=== PATIENT | female | born 1955 | race Caucasian/White ===

== ENCOUNTER 2019-02-13 07:31 | Day surgery (SDC) | payer BC ==
[~2019-02-13 07:31] MED LIST: Lactated Ringers 1,000 ML IV SCH
[2019-02-13] MEDS ORDERED: Midazolam 1 MG/ML 2 ML SDV ONE (07:58)
[2019-02-13] MEDS ORDERED: Propofol 200 MG/20 ML SDV ONE (07:58)
[2019-02-13] MEDS ORDERED: fentaNYL 100 MCG/2 ML SDV ONE (07:58)
--- NOTE | 2019-02-13 10:37 | OR ---
PREOPERATIVE DIAGNOSES: 1. Screening colonoscopy. 2. Family history of polyps-mother. POSTOPERATIVE DIAGNOSES: 1. Sigmoid diverticulosis. 2. Colonic polyps x3. PROCEDURE PROPOSED: Total flexible colonoscopy. PROCEDURE DONE: Total flexible colonoscopy with cold biopsy forceps polypectomy x2, cold snare polypectomy x1. INDICATION: This is a 63-year-old female who comes in for a 10-year screening colonoscopy. Her last examination was normal. She does have a family history of mother with polyps. She denies any symptomatology. TECHNIQUE: The patient was brought to the endoscopy suite, placed in left lateral decubitus position. She was sedated per [employer] with propofol. The flexible video colonoscope was then passed transanally, and under visualization, advanced to the cecum. Examination revealed couple of polyps in the hepatic flexure area at about 130 cm from the anal verge. One was removed by cold snare technique, the other by cold biopsy forceps technique. They were both submitted for pathologic examination. The remainder of the transverse colon was unremarkable. In the distal descending colon at about 40 cm, there was another polyp removed by cold biopsy forceps technique and submitted for pathologic examination. The sigmoid revealed some diverticulosis, and the rectum was normal. The scope was then withdrawn. She tolerated the procedure well. FINAL IMPRESSION: 1. Colonic polyps x3 removed. 2. Sigmoid diverticulosis. PLAN: She will be sent a letter with pathology report, and I felt with her family history of polyps and now her personal history of polyps, she should have colonoscopies every 5 years hereafter. SCM: 02/13/2019 10:12:10 MODL: 02/13/2019 10:27:49 /[id number]
[2019-02-13 11:09] VITALS: BP 135/64; PULSE 50
== END 2019-02-13 11:36 | disposition home or self-care (01) ==
LOC: VM.SDS 07:31
PROVIDERS: ATTEND Surgery
DX: Z12.11 Encounter for screening for malignant neoplasm of colon (principal); D12.4 Benign neoplasm of descending colon; D12.3 Benign neoplasm of transverse colon; K57.30 Diverticulosis of large intestine without perforation or abscess without bleeding; I10 Essential (primary) hypertension; I48.91 Unspecified atrial fibrillation; I34.0 Nonrheumatic mitral (valve) insufficiency; E78.5 Hyperlipidemia, unspecified; E03.9 Hypothyroidism, unspecified; E66.9 Obesity, unspecified; C73 Malignant neoplasm of thyroid gland; G47.33 Obstructive sleep apnea (adult) (pediatric); R73.03 Prediabetes; M17.11 Unilateral primary osteoarthritis, right knee; Z88.8 Allergy status to other drugs, medicaments and biological substances; Z68.39 Body mass index [BMI] 39.0-39.9, adult; Z99.89 Dependence on other enabling machines and devices; Z83.71 Family history of colonic polyps; Z79.82 Long term (current) use of aspirin; Z79.899 Other long term (current) drug therapy
CPT/HCPCS: 45380; 45385; J2250; J2704; J3010; J7120

== ENCOUNTER 2019-09-27 03:25 | Observation (INO) | payer BC ==
[2019-09-27] MEDS ORDERED: Diltiazem 50 MG/10 ML SDV IVPUSH ONE ×2 (04:03→19:28)
--- NOTE | 2019-09-27 04:17 | EDM.PDOC ---
ED HPI GENERAL MEDICAL PROBLEM - General Chief Complaint: Cardiovascular Problem Stated Complaint: Uncontrolled atrial fib, SOB Time Seen by Provider: 09/27/19 03:50 Source of Information: Reports: Patient History Limitations: Reports: No Limitations - History of Present Illness INITIAL COMMENTS - FREE TEXT/NARRATIVE: Patient presents per EMS with complaints of a fluttering sensation in her chest. Had retired to bed around 2300, awoke at 0130 with a fluttering sensation in her chest. Got diaphoretic. Denies having much chest discomfort with this. Had a history of one episode of atrial fib about 5 years ago and questioned if having same now. Has been feeling good. No fevers. Admits to mild shortness of breath with this. No cough. No nausea/vomiting/abdominal pain. No swelling in her legs. Has been taking metoprolol 25 mg twice a day for 5 years and has been compliant with that. Currently takes thyroid medicine , has not missed any doses with that either. Has not seen cardiology for this, relates was discussion of ablation but never had to have completed. Onset: Today, Sudden Duration: Hour(s):, Constant Location: Reports: Chest Severity: Mild Associated Symptoms: Reports: Diaphoresis, Shortness of Breath, Weakness. Denies: Confusion, Chest Pain, Cough, Fever/Chills, Loss of Appetite, Nausea/ Vomiting - Related Data Allergies Allergy/AdvReac Type Severity Reaction Status Date / Time hydrochlorothiazide Allergy Rash Verified 09/27/19 03:55 Home Meds: Home Meds Cholecalciferol (Vitamin D3) [Vitamin D3] 1,000 units PO DAILY 10/06/14 [History ] Multivitamin [Multi-Vitamin Daily] 1 tab PO DAILY 10/06/14 [History] Metoprolol Tartrate [Lopressor] 25 mg PO BID #60 tablet 10/07/14 [Rx] Aspirin [Children's Aspirin] 162 mg PO BID 02/05/19 [History] Calcium Carbonate/Vitamin D3 [Caltrate 600 Plus D3 Tablet] 1 tab PO TID [History] Levothyroxine Sodium [Synthroid] 200 mcg PO DAILY 02/05/19 [History] Past Medical History HEENT History: Reports: Other (See Below) Other HEENT History: vocal cord paralysis Cardiovascular History: Reports: Afib, High Cholesterol, Hypertension, Other ( See Below) Other Cardiovascular History: mild mitral valve regurgitaion Respiratory History: Reports: Sleep Apnea Genitourinary History: Reports: Other (See Below) Other Genitourinary History: stress incontinence Musculoskeletal History: Reports: Osteoarthritis Endocrine/Metabolic History: Reports: Hypothyroidism, Obesity/BMI 30+ Oncologic (Cancer) History: Reports: Thyroid - Past Surgical History HEENT Surgical History: Reports: Other (See Below) Other HEENT Surgeries/Procedures: panendoscopy; radical neck dissection GI Surgical History: Reports: Colonoscopy Endocrine Surgical History: Reports: Thyroidectomy Neurological Surgical History: Reports: Laminectomy, Lumbar Spine Musculoskeletal Surgical History: Reports: Knee Replacement Social & Family History - Tobacco Use Smoking Status *Q: Unknown Ever Smoked ED ROS GENERAL - Review of Systems Review Of Systems: See Below Constitutional: Denies: Fever, Chills, Malaise, Weakness, Fatigue, Decreased Appetite HEENT: Denies: Ear Pain, Sinus Problem, Throat Pain, Vertigo Respiratory: Reports: Shortness of Breath. Denies: Cough Cardiovascular: Denies: Chest Pain, Edema, Lightheadedness Endocrine: Denies: Fatigue GI/Abdominal: Denies: Abdominal Pain, Nausea, Vomiting Musculoskeletal: Reports: No Symptoms Skin: Reports: Diaphoresis Neurological: Reports: No Symptoms ED EXAM, GENERAL - Physical Exam Exam: See Below Exam Limited By: No Limitations General Appearance: Alert, WD/WN, No Apparent Distress Ears: Normal External Exam, Normal TMs Nose: Normal Inspection, Normal Mucosa, No Blood Throat/Mouth: Normal Inspection, Normal Oropharynx Head: Normocephalic Neck: Normal Inspection, Supple, Non-Tender Respiratory/Chest: No Respiratory Distress, Lungs Clear, Normal Breath Sounds Cardiovascular: Tachycardia, Irregularly Irregular GI/Abdominal: Normal Bowel Sounds, Soft, Non-Tender Extremities: Normal Inspection, No Pedal Edema Neurological: Alert, Oriented Skin Exam: Warm, Dry Course - Vital Signs Last Recorded V/S: Last Vital Signs Temp 98 F 09/27/19 03:28 Pulse 120 H 09/27/19 03:28 Resp 16 09/27/19 03:28 BP 157/95 H 09/27/19 03:28 Pulse Ox 95 09/27/19 03:28 - Orders/Labs/Meds Orders: Active Orders 24 hr Category Date Time Status Patient Status Manage Transfer [TRANSFER] Routine ADT 09/27/19 04:47 Active Chest 2V [CR] Stat Exams 09/27/19 03:58 Taken Resuscitation Status Routine Resus Stat 09/27/19 04:47 Ordered Labs: Laboratory Tests 09/27/19 09/27/19 09/27/19 Range/Units 04:01 04:01 04:01 WBC 9.6 (4.0-10.0) x10^3/uL RBC 4.81 (4.00-5.50) x10^6/uL Hgb 13.9 (12.0-16.0) g/dL Hct 41.0 (33.0-47.0) % MCV 85.2 (78.0-93.0) fL MCH 28.9 (26.0-32.0) pg MCHC 33.9 (32.0-36.0) g/dL RDW Coeff of Kirt 13.2 (10.0-15.0) % Plt Count 247 (130-400) x10^3/uL Neut % (Auto) 68.3 (50.0-80.0) % Lymph % (Auto) 22.2 L (25.0-50.0) % Citrus % (Auto) 7.9 (2.0-11.0) % Eos % (Auto) 1.3 (0.0-4.0) % Baso % (Auto) 0.3 (0.2-1.2) % D-Dimer, Quantitative 0.63 H (<=0.58) mg/LFEU Sodium 146 H (136-145) mmol/L Potassium 4.5 (3.5-5.1) mmol/L Chloride 107 (98-107) mmol/L Carbon Dioxide 28 (21-32) mmol/L Anion Gap 15.5 (10-20) mmol/L BUN 19 H (7-18) mg/dL Creatinine 0.9 (0.55-1.02) mg/dL Est Cr Clr Drug Dosing 59.89 mL/min Estimated GFR (MDRD) > 60 Glucose 121 H (74-106) mg/dL Calcium 9.0 (8.5-10.1) mg/dL Corrected Calcium 9.32 (8.5-10.1) mg/dL Total Bilirubin 0.3 (0.2-1.0) mg/dL AST 19 (15-37) U/L ALT 27 (14-59) U/L Alkaline Phosphatase 101 (46-116) U/L Lactate Dehydrogenase 183 (81-234) U/L Creatine Kinase 207 H* (26-192) U/L Troponin I < 0.017 (<=0.056) ng/mL Total Protein 7.5 (6.4-8.2) g/dL Albumin 3.6 (3.4-5.0) g/dL Globulin 3.9 Albumin/Globulin Ratio 0.92 TSH, Ultra Sensitive 0.016 L (0.358-3.74) uIU/mL Meds: Medications Discontinued Medications Generic Name Dose Route Start Last Admin Trade Name Freq PRN Reason Stop Dose Admin Diltiazem HCl 10 mg 09/27/19 04:03 Cardizem IVPUSH 09/27/19 04:04 ONETIME ONE - Re-Assessments/Exams Free Text/Narrative Re-Assessment/Exam: 09/27/19 04:55 Patient stable. No chest pain. Rate 100-109. Will admit to observation. Monitor cardiac rhythm and rate, consider starting Cardizem oral and Eliquis. Contact her physician in am. Patient aware and agrees with plan. Departure - Departure Time of Disposition: 04:45 Disposition: Refer to Observation Condition: Good Clinical Impression: Atrial fibrillation with RVR Forms: ED Department Discharge Sepsis Event Note - Evaluation Sepsis Screening Result: No Definite Risk - Focused Exam Vital Signs: Vital Signs Temp Pulse Resp BP Pulse Ox 09/27/19 03:28 98 F 120 H 16 157/95 H 95 Date Exam was Performed: 09/27/19 Time Exam was Performed: 04:55 - Problem List & Annotations (1) Atrial fibrillation with RVR SNOMED Code(s): 350094083256138 Code(s): I48.91 - UNSPECIFIED ATRIAL FIBRILLATION Status: Acute Priority : High Current Visit: Yes - Problem List Review Problem List Initiated/Reviewed/Updated: Yes - My Orders Last 24 Hours: My Active Orders 09/27/19 03:58 Chest 2V [CR] Stat 09/27/19 04:47 Patient Status Manage Transfer [TRANSFER] Routine Resuscitation Status Routine - Assessment/Plan Admission H&P: Please use this note as an admission H&P Last 24 Hours: My Active Orders 09/27/19 03:58 Chest 2V [CR] Stat 09/27/19 04:47 Patient Status Manage Transfer [TRANSFER] Routine Resuscitation Status Routine Assessment:: Atrial Fib with RVR Plan: Admit to observation. Will repeat labs in 4 hours. Consider Cardizem oral and Eliquis, will follow and discuss with PCP.
[2019-09-27] MEDS ORDERED: Sodium Chloride 0.9% 500 ML IV ONE (04:20)
[2019-09-27 04:38] LABS: CHLORIDE,CL 107 mmol/L (98-107); SODIUM,NA 146 mmol/L (136-145)
[2019-09-27 04:40] LABS: ANION GAP 15.5 mmol/L (10-20)
[2019-09-27] MEDS ORDERED: Acetaminophen 325 MG Tab PO PRN (05:01)
[2019-09-27] MEDS ORDERED: Ondansetron 4 MG Tab.DIS PO PRN (05:01)
[2019-09-27] MEDS ORDERED: Enoxaparin 40 MG/0.4 ML Syringe SUBCUT SCH (08:00)
[2019-09-27] MEDS ORDERED: Metoprolol Tartrate 25 MG Tab PO SCH (08:00)
[2019-09-27] MEDS: Levothyroxine 100 MCG Tab PO SCH (08:26)
[2019-09-27] MEDS: Calcium Carbonate/Vitamin D3 1250 MG-200 Unit Tab PO SCH ×3 (08:26→21:31)
[2019-09-27] MEDS: Aspirin 81 MG Tab.Chew PO SCH ×2 (08:27→22:17)
[2019-09-27] MEDS: Cholecalciferol (Vitamin D3) 25 MCG Tab PO SCH (08:27)
[2019-09-27] MEDS ORDERED: Metoprolol Tartrate 25 MG Tab PO ONE (10:35)
--- NOTE | 2019-09-27 10:49 | CR ---
[id number] RAD/RAD Chest PA And Lateral EXAM: RAD Chest PA And Lateral INDICATION: PALPITATIONS. COMPARISON: None. DISCUSSION: Multiple surgical clips within the left neck. Cardiomediastinal silhouette is normal in size and contour. No infiltrate, effusion, pneumothorax, or edema. IMPRESSION: No acute cardiopulmonary abnormality. Fortino Lester DO 09/27/19 1048 Thank you for allowing us to participate in the care of your patient.
--- NOTE | 2019-09-27 17:26 | PCM.PN ---
- General Info Date of Service: 09/27/19 Admission Dx/Problem (Free Text): Atrial Fib with RVR Functional Status: Reports: Pain Controlled, Tolerating Diet, Ambulating - Review of Systems General: Denies: Fever, Weakness, Fatigue, Malaise HEENT: Denies: Headaches Pulmonary: Denies: Shortness of Breath, Cough Cardiovascular: Reports: Palpitations. Denies: Chest Pain, Edema, Lightheadedness Gastrointestinal: Denies: Abdominal Pain, Nausea, Vomiting Genitourinary: Reports: No Symptoms Musculoskeletal: Reports: No Symptoms Skin: Reports: No Symptoms Neurological: Reports: No Symptoms - Patient Data Vitals - Most Recent: Last Vital Signs Temp 98.1 F 09/27/19 14:00 Pulse 102 H 09/27/19 14:00 Resp 16 09/27/19 14:00 BP 117/74 09/27/19 14:00 Pulse Ox 97 09/27/19 14:00 Weight - Most Recent: 245 lb I&O - Last 24 Hours: Intake & Output 09/27/19 09/27/19 09/27/19 06:59 14:59 22:59 Intake Total 100 586 Balance 100 586 Lab Results Last 24 Hours: Laboratory Results - last 24 hr 09/27/19 09/27/19 09/27/19 Range/Units 04:01 04:01 04:01 WBC 9.6 (4.0-10.0) x10^3/uL RBC 4.81 (4.00-5.50) x10^6/uL Hgb 13.9 (12.0-16.0) g/dL Hct 41.0 (33.0-47.0) % MCV 85.2 (78.0-93.0) fL MCH 28.9 (26.0-32.0) pg MCHC 33.9 (32.0-36.0) g/dL RDW Coeff of Kirt 13.2 (10.0-15.0) % Plt Count 247 (130-400) x10^3/uL Neut % (Auto) 68.3 (50.0-80.0) % Lymph % (Auto) 22.2 L (25.0-50.0) % [place] % (Auto) 7.9 (2.0-11.0) % Eos % (Auto) 1.3 (0.0-4.0) % Baso % (Auto) 0.3 (0.2-1.2) % D-Dimer, Quantitative 0.63 H (<=0.58) mg/LFEU Sodium 146 H (136-145) mmol/L Potassium 4.5 (3.5-5.1) mmol/L Chloride 107 (98-107) mmol/L Carbon Dioxide 28 (21-32) mmol/L Anion Gap 15.5 (10-20) mmol/L BUN 19 H (7-18) mg/dL Creatinine 0.9 (0.55-1.02) mg/dL Est Cr Clr Drug Dosing 59.89 mL/min Estimated GFR (MDRD) > 60 Glucose 121 H (74-106) mg/dL Calcium 9.0 (8.5-10.1) mg/dL Corrected Calcium 9.32 (8.5-10.1) mg/dL Total Bilirubin 0.3 (0.2-1.0) mg/dL AST 19 (15-37) U/L ALT 27 (14-59) U/L Alkaline Phosphatase 101 (46-116) U/L Lactate Dehydrogenase 183 (81-234) U/L Creatine Kinase 207 H* (26-192) U/L Troponin I < 0.017 (<=0.056) ng/mL Total Protein 7.5 (6.4-8.2) g/dL Albumin 3.6 (3.4-5.0) g/dL Globulin 3.9 Albumin/Globulin Ratio 0.92 TSH, Ultra Sensitive 0.016 L (0.358-3.74) uIU/mL 09/27/19 Range/Units 08:59 WBC (4.0-10.0) x10^3/uL RBC (4.00-5.50) x10^6/uL Hgb (12.0-16.0) g/dL Hct (33.0-47.0) % MCV (78.0-93.0) fL MCH (26.0-32.0) pg MCHC (32.0-36.0) g/dL RDW Coeff of Kirt (10.0-15.0) % Plt Count (130-400) x10^3/uL Neut % (Auto) (50.0-80.0) % Lymph % (Auto) (25.0-50.0) % [place] % (Auto) (2.0-11.0) % Eos % (Auto) (0.0-4.0) % Baso % (Auto) (0.2-1.2) % D-Dimer, Quantitative (<=0.58) mg/LFEU Sodium (136-145) mmol/L Potassium (3.5-5.1) mmol/L Chloride (98-107) mmol/L Carbon Dioxide (21-32) mmol/L Anion Gap (10-20) mmol/L BUN (7-18) mg/dL Creatinine (0.55-1.02) mg/dL Est Cr Clr Drug Dosing mL/min Estimated GFR (MDRD) Glucose (74-106) mg/dL Calcium (8.5-10.1) mg/dL Corrected Calcium (8.5-10.1) mg/dL Total Bilirubin (0.2-1.0) mg/dL AST (15-37) U/L ALT (14-59) U/L Alkaline Phosphatase (46-116) U/L Lactate Dehydrogenase (81-234) U/L Creatine Kinase 189 (26-192) U/L Troponin I < 0.017 (<=0.056) ng/mL Total Protein (6.4-8.2) g/dL Albumin (3.4-5.0) g/dL Globulin Albumin/Globulin Ratio TSH, Ultra Sensitive (0.358-3.74) uIU/mL Med Orders - Current: Current Medications Acetaminophen (Tylenol) 650 mg PO Q4H PRN PRN Reason: Pain (Mild 1-3)/fever Aspirin (Aspirin) 162 mg PO BID [facility] Last Admin: 09/27/19 08:27 Dose: 162 mg Calcium Carbonate (Calcium Carbonate/Vitamin D 1250 Mg-200 Unit) 1 tab PO TID [facility] Last Admin: 09/27/19 11:33 Dose: 1 tab Cholecalciferol (Vitamin D3) 25 mcg PO DAILY [facility] Last Admin: 09/27/19 08:27 Dose: 25 mcg Enoxaparin Sodium (Lovenox) 40 mg SUBCUT DAILY [facility] Last Admin: 09/27/19 08:27 Dose: 40 mg Sodium Chloride (Normal Saline) 500 mls @ 30 mls/hr IV ONETIME ONE Stop: 09/27/19 20:59 Last Admin: 09/27/19 04:25 Dose: 30 mls/hr Levothyroxine Sodium (Synthroid) 200 mcg PO DAILY [facility] Last Admin: 09/27/19 08:26 Dose: 200 mcg Ondansetron HCl (Zofran Odt) 4 mg PO Q4H PRN PRN Reason: nausea, able to take PO Discontinued Medications Diltiazem HCl (Cardizem) 10 mg IVPUSH ONETIME ONE Stop: 09/27/19 04:04 Last Admin: 09/27/19 04:28 Dose: 10 mg Metoprolol Tartrate (Lopressor) 25 mg PO BID [facility] Last Admin: 09/27/19 08:27 Dose: 25 mg Metoprolol Tartrate (Lopressor) 25 mg PO NOW ONE Stop: 09/27/19 10:36 Last Admin: 09/27/19 11:33 Dose: 25 mg - Exam General: Alert, Oriented HEENT: Mucous Membr. Moist/Electra Neck: Supple Lungs: Clear to Auscultation, Normal Respiratory Effort Cardiovascular: Irregular Rhythm GI/Abdominal Exam: Normal Bowel Sounds, Soft, Non-Tender Extremities: Normal Inspection, No Pedal Edema Skin: Warm, Dry Neurological: No New Focal Deficit Sepsis Event Note - Evaluation Sepsis Screening Result: No Definite Risk - Focused Exam Vital Signs: Vital Signs Temp Temp Pulse Pulse Resp BP BP 09/27/19 14:00 98.1 F 102 H 16 117/74 09/27/19 11:33 110 H 123/75 09/27/19 09:52 97.8 F 100 24 H 123/75 09/27/19 08:27 120 H 126/73 09/27/19 06:42 09/27/19 06:00 97.6 F 18 126/73 Pulse Ox Pulse Ox 09/27/19 14:00 97 09/27/19 11:33 09/27/19 09:52 96 09/27/19 08:27 09/27/19 06:42 95 09/27/19 06:00 96 Date Exam was Performed: 09/27/19 Time Exam was Performed: 17:20 - Problem List & Annotations (1) Atrial fibrillation with RVR SNOMED Code(s): 403849407642336 Code(s): I48.91 - UNSPECIFIED ATRIAL FIBRILLATION Status: Acute Priority : High Current Visit: Yes - Problem List Review Problem List Initiated/Reviewed/Updated: Yes - My Orders Last 24 Hours: My Active Orders 09/27/19 04:20 Sodium Chloride 0.9% [Normal Saline] 500 ml IV ONETIME 09/27/19 04:47 Resuscitation Status Routine 09/27/19 05:01 Patient Status [ADT] Routine Cardiac Monitoring [RC] 02,06,10,14,18,22 Oxygen Therapy [RC] .PRN Up With Assistance [RC] VTE/DVT Education [RC] .PRN Vital Signs [RC] 02,06,10,14,18,22 Acetaminophen [Tylenol] 650 mg PO Q4H PRN Ondansetron [Zofran ODT] 4 mg PO Q4H PRN 09/27/19 08:00 Aspirin 162 mg PO BID Calcium Carbonate/Vitamin D3 [Calcium Carbonate/Vitamin D 1250 MG-200 Unit] 1 tab PO TID Cholecalciferol (Vitamin D3) [Vitamin D3] 25 mcg PO DAILY Enoxaparin [Lovenox] 40 mg SUBCUT DAILY Levothyroxine [Synthroid] 200 mcg PO DAILY 09/27/19 20:00 Metoprolol Tartrate [Lopressor] 50 mg PO BID 09/27/19 Breakfast Regular Diet [DIET] - Assessment Assessment:: Atrial Fib with RVR - Plan Plan:: Patient continues to have a fluttering sensation in her chest at times. No chest pain. Heart rate has continued to range between 100-110 at times despite giving extra dose of metoprolol this am. Blood pressure is maintaining at normal. Did discuss with patient potential need for anticoagulation as has not converted back to a normal rhythm as of yet. Will increase dose of metoprolol to 50 mg BID and continue to monitor. Lab rechecks this am were normal. Possible discharge home tomorrow.
[2019-09-27] MEDS ORDERED: Iopamidol 612 MG/ML 100 ML Bottle IVPUSH ONE (21:25)
[2019-09-27] MEDS: Metoprolol Tartrate 50 MG Tab PO SCH (21:27)
[2019-09-27] MEDS: Apixaban 2.5 MG Tab PO SCH (23:28)
[2019-09-28] MEDS: Diltiazem IR 30 MG Tab PO SCH ×2 (02:11→07:58)
--- NOTE | 2019-09-28 05:02 | PCM.PN ---
- General Info Date of Service: 09/27/19 Admission Dx/Problem (Free Text): Pt. was continuing to have heart rates in the 115-130 range despite increased dose of metoprolol. She states that she is feeling better. Denies any chest pain or shortness of breath. Appetite has been adequate today. Pt. did have a + d dimer this AM. She had been started on lovenox for DVT prophylaxis but not the full dose, and she had not had PE ruled out with CT angiogram of the chest. Functional Status: Reports: Pain Controlled - Review of Systems General: Reports: No Symptoms HEENT: Reports: No Symptoms Pulmonary: Reports: No Symptoms Cardiovascular: Reports: No Symptoms Gastrointestinal: Reports: No Symptoms Genitourinary: Reports: No Symptoms Musculoskeletal: Reports: No Symptoms Skin: Reports: No Symptoms Neurological: Reports: No Symptoms Psychiatric: Reports: No Symptoms - Patient Data Vitals - Most Recent: Last Vital Signs Temp 36.4 C 09/28/19 01:31 Pulse 108 H 09/28/19 02:11 Resp 20 09/28/19 01:31 BP 108/82 09/28/19 01:31 Pulse Ox 96 09/28/19 01:31 Weight - Most Recent: 111.13 kg I&O - Last 24 Hours: Intake & Output 09/27/19 09/27/19 09/28/19 14:59 22:59 06:59 Intake Total 586 990 Output Total 1600 Balance 586 -610 Lab Results Last 24 Hours: Laboratory Results - last 24 hr 09/27/19 Range/Units 08:59 Creatine Kinase 189 (26-192) U/L Troponin I < 0.017 (<=0.056) ng/mL Med Orders - Current: Current Medications Acetaminophen (Tylenol) 650 mg PO Q4H PRN PRN Reason: Pain (Mild 1-3)/fever Apixaban (Eliquis) 5 mg PO BID [facility] Last Admin: 09/27/19 23:28 Dose: 5 mg Aspirin (Aspirin) 162 mg PO BID [facility] Last Admin: 09/27/19 22:17 Dose: 162 mg Calcium Carbonate (Calcium Carbonate/Vitamin D 1250 Mg-200 Unit) 1 tab PO TID [facility] Last Admin: 09/27/19 21:31 Dose: 1 tab Cholecalciferol (Vitamin D3) 25 mcg PO DAILY [facility] Last Admin: 09/27/19 08:27 Dose: 25 mcg Diltiazem HCl (Cardizem) 30 mg PO Q6H [facility] Last Admin: 09/28/19 02:11 Dose: 30 mg Levothyroxine Sodium (Synthroid) 200 mcg PO DAILY [facility] Last Admin: 09/27/19 08:26 Dose: 200 mcg Metoprolol Tartrate (Lopressor) 50 mg PO BID [facility] Last Admin: 09/27/19 21:27 Dose: 50 mg Ondansetron HCl (Zofran Odt) 4 mg PO Q4H PRN PRN Reason: nausea, able to take PO Discontinued Medications Diltiazem HCl (Cardizem) 10 mg IVPUSH ONETIME ONE Stop: 09/27/19 04:04 Last Admin: 09/27/19 04:28 Dose: 10 mg Diltiazem HCl (Cardizem) 20 mg IVPUSH ONETIME ONE Stop: 09/27/19 19:29 Last Admin: 09/27/19 19:42 Dose: 20 mg Enoxaparin Sodium (Lovenox) 40 mg SUBCUT DAILY [facility] Last Admin: 09/27/19 08:27 Dose: 40 mg Sodium Chloride (Normal Saline) 500 mls @ 30 mls/hr IV ONETIME ONE Stop: 09/27/19 20:59 Last Admin: 09/27/19 04:25 Dose: 30 mls/hr Iopamidol (Isovue-300 (61%)) 100 ml IVPUSH ONETIME ONE Stop: 09/27/19 21:26 Last Admin: 09/27/19 22:01 Dose: 100 ml Metoprolol Tartrate (Lopressor) 25 mg PO BID [facility] Last Admin: 09/27/19 08:27 Dose: 25 mg Metoprolol Tartrate (Lopressor) 25 mg PO NOW ONE Stop: 09/27/19 10:36 Last Admin: 09/27/19 11:33 Dose: 25 mg - Exam General: Alert, Oriented Lungs: Clear to Auscultation, Normal Respiratory Effort Cardiovascular: Regular Rate, Irregular Rhythm, Tachycardia GI/Abdominal Exam: Normal Bowel Sounds, Soft, Non-Tender, No Organomegaly, No Distention, No Mass (Female) Exam: Deferred Back Exam: Normal Inspection, Full Range of Motion Extremities: Normal Inspection, Normal Range of Motion, Non-Tender, No Pedal Edema, Normal Capillary Refill Peripheral Pulses: 4+: Radial (L) Skin: Warm, Dry, Intact Neurological: No New Focal Deficit Psy/Mental Status: Alert, Normal Affect, Normal Mood EKG INTERPRETATION Rhythm: A-Fib Sepsis Event Note - Evaluation Sepsis Screening Result: No Definite Risk - Focused Exam Vital Signs: Vital Signs Temp Pulse Pulse Resp BP BP BP 09/28/19 02:11 108 H 09/28/19 01:31 36.4 C 100 20 108/82 09/27/19 21:30 36.4 C 95 16 112/77 09/27/19 21:27 95 112/77 09/27/19 18:00 36.2 C 92 16 142/84 H Pulse Ox 09/28/19 02:11 09/28/19 01:31 96 09/27/19 21:30 96 09/27/19 21:27 09/27/19 18:00 97 Date Exam was Performed: 09/28/19 Time Exam was Performed: 04:52 - Problem List Review Problem List Initiated/Reviewed/Updated: Yes - My Orders Last 24 Hours: My Active Orders 09/27/19 19:29 PE Chest [Ang Chest] [CT] Stat 09/27/19 22:30 Apixaban [Eliquis] 5 mg PO BID 09/28/19 02:00 Diltiazem IR [Cardizem] 30 mg PO Q6H - Assessment Assessment:: Atrial Fib with RVR - Plan Plan:: Patient continues to have a fluttering sensation in her chest at times. No chest pain. Heart rate has continued to range between 100-110 at times despite giving extra dose of metoprolol this am. Blood pressure is maintaining at normal. Did discuss with patient potential need for anticoagulation as has not converted back to a normal rhythm as of yet. Will increase dose of metoprolol to 50 mg BID and continue to monitor. Lab rechecks this am were normal. Possible discharge home tomorrow. CT angiogram of chest was negative. She was given 20mg of Cardizem IV which caused a precipitous drop in BP down to the 70 systolic range. She also became bradycardic with rate in the 30s briefly. This resolved rapidly with fluid bolus. She was started on Cardizem 30mg PO QID. Will titrate to assist with better rate control. Will start Eliquis 5mg BID. Discussed findings with Dr. Justin who will assume care of the patient tomorrow AM.
[2019-09-28 06:34] VITALS: BP 116/70
[2019-09-28] MEDS: Aspirin 81 MG Tab.Chew PO SCH (07:58)
[2019-09-28] MEDS: Levothyroxine 100 MCG Tab PO SCH (07:58)
[2019-09-28] MEDS: Apixaban 2.5 MG Tab PO SCH (07:58)
[2019-09-28] MEDS: Cholecalciferol (Vitamin D3) 25 MCG Tab PO SCH (07:58)
[2019-09-28] MEDS: Calcium Carbonate/Vitamin D3 1250 MG-200 Unit Tab PO SCH (07:58)
[2019-09-28] MEDS: Metoprolol Tartrate 50 MG Tab PO SCH (07:58)
[2019-09-28 08:08] VITALS: PULSE 123
--- NOTE | 2019-09-28 08:27 | CT ---
[id number] CT/CTA Chest Exam: CTA Chest Clinical Data: ONSET OF ATRIAL FIBRILLATION POSITIVE D-DIMER COMPARISON: CORRELATION IS MADE WITH THE CURRENT CHEST RADIOGRAPH FINDINGS: There are no pulmonary emboli There is no pulmonary parenchymal infiltrate or mass. The great vessels are intact. There is no mediastinal mass or adenopathy IMPRESSION: NO PULMONARY EMBOLI Ankit Rao MD 09/28/19 0826 Thank you for allowing us to participate in the care of your patient.
--- NOTE | 2019-09-28 21:03 | DISCH ---
PRIMARY DISCHARGE DIAGNOSES: 1. Atrial fibrillation with rapid ventricular response, converted to a sinus rhythm. 2. Three-second pause while in atrial fibrillation overnight with some hypotension, responded to IV fluids. 3. Positive D-dimer with negative CT PE protocol. 4. History of thyroid cancer with hypothyroidism with slightly suppressed TSH at 0.016. 5. Essential hypertension. 6. Obesity. 7. Sleep apnea, compliant with continuous positive airway pressure. 8. Mild mitral regurgitation with EF 65%. 9. Osteoarthritis of the knees with previous replacement. 10.Stress incontinence. 11.Vocal cord paralysis due to thyroid cancer surgery. REASON FOR ADMISSION: On the date of admission, this 64-year-old female who has a history of paroxysmal AFib, but had not really had any episodes since 2014 when she was diagnosed with thyroid cancer awoke during the night and sort of felt sweaty, not really short of breath. No chest pain. Checked her pulse and it was like over 110. Therefore, summoned the ambulance and came into the emergency room. Atrial fibrillation with RVR was confirmed. She had a troponin that was negative x2. CK was mildly elevated at 207, but repeat was 189. Renal function was normal. Sodium mildly elevated at 146. She was not anemic. D- dimer mildly positive. Therefore, she was given some IV Cardizem. Rate slowed, but did not resolve. Then, she had rates up in the 115 to 130 range and received some more IV Cardizem 20 mg, and had the 3-second pause with some hypotension, which responded to fluids. Heart rates did go down into the 30s at that time, but they came back up, and she was doing well overnight on Cardizem 30 mg q.i.d. started. The next morning even before she received her oral Cardizem around 8 a.m., she converted to a sinus rhythm. The patient was started on Eliquis 5 mg twice daily and will be discharged today on that. She also had an increased dose of Lopressor to 50 mg twice daily. DISCHARGE PLANS AND INSTRUCTIONS: The patient is discharged home to follow up with Dr. Justin in the clinic in 1 month. She will be on Lopressor 50 mg twice daily and Eliquis 5 mg twice daily. We will also decrease her levothyroxine to 200 mcg skipping a dose every other Saturday including today. Her financial processing clerk was also updated about this. She is due for lab work later this summer for her thyroid and we will repeat sooner if needed. PHYSICAL EXAMINATION: Discharging Vitals: Include a weight 111.1 kg, temperature 97.5, pulse 79, blood pressure 116/70, respiratory rate 18, and O2 of 97% on room air. General: She is in no acute distress. Heart: Regular rate and rhythm. S1, S2 without murmur. Lungs: Lung sounds are clear to auscultation bilaterally without crackles or wheezes. Abdomen: Has positive bowel sounds. Extremities: Warm and dry. No edema. Mental Status: She is alert. She is orientated x3. MKA: 09/28/2019 17:34:11 MODL: 09/28/2019 20:55:17 /[id number]
== END 2019-09-28 11:00 | disposition home or self-care (01) ==
LOC: VM.ED 03:25 → VM.MS 04:47
PROVIDERS: ADMIT Physician Assistant Medical; ATTEND Physician Assistant Medical
DX: I48.91 Unspecified atrial fibrillation (principal); I95.9 Hypotension, unspecified; E78.00 Pure hypercholesterolemia, unspecified; I10 Essential (primary) hypertension; E66.9 Obesity, unspecified; G47.30 Sleep apnea, unspecified; E89.0 Postprocedural hypothyroidism; I34.0 Nonrheumatic mitral (valve) insufficiency; N39.3 Stress incontinence (female) (male); M17.0 Bilateral primary osteoarthritis of knee; R79.1 Abnormal coagulation profile; J38.00 Paralysis of vocal cords and larynx, unspecified; Z79.82 Long term (current) use of aspirin; Z88.8 Allergy status to other drugs, medicaments and biological substances; Z85.850 Personal history of malignant neoplasm of thyroid; Z79.899 Other long term (current) drug therapy; Z79.890 Hormone replacement therapy; Z68.39 Body mass index [BMI] 39.0-39.9, adult; Z96.653 Presence of artificial knee joint, bilateral
CPT/HCPCS: 36415; 71046; 71275; 80053; 82550; 83615; 84443; 84484; 85025; 85379; 93005; 99285; A9270; J1650; J3490; J7040; Q9967

== ENCOUNTER 2020-09-28 00:02 | Emergency (ER) | payer BC ==
[2020-09-28] MEDS: Aspirin 81 MG Tab.Chew PO ONE (00:12)
[2020-09-28] MEDS ORDERED: Sodium Chloride 0.9% 10 ML Syringe FLUSH PRN (00:14)
[2020-09-28] MEDS: GI Cocktail Oral Solution 30 ML PO ONE (00:29)
[2020-09-28 00:47] LABS: PTT,PARTIAL THROMBOPLSTIN TIME 27.1 SEC (25.6-32.8)
[2020-09-28 00:55] LABS: ANION GAP 13.9 mmol/L (5-15)
[2020-09-28 01:00] VITALS: BP 141/47; PULSE 53
--- NOTE | 2020-09-28 01:11 | PCM.EKG ---
#1 Interpretation EKG Date: 09/27/20 Time: 23:48 Rhythm: NSR Rate (Beats/Min): 65 [place]: Normal P-Wave: Present QRS: Normal ST-T: Normal QT: Normal Comparison: No Change
--- NOTE | 2020-09-28 08:01 | CR ---
[id number] RAD/RAD Chest PA And Lateral EXAM: FRONTAL AND LATERAL CHEST INDICATION: CHEST PAIN COMPARISON: September 27, 2019. DISCUSSION: Chronic scarring left lung base. No acute infiltrates are identified. Mild cardiomegaly without evidence of edema Multiple surgical clips in the lower left neck. IMPRESSION: 1. No acute findings. Miller Pickett MD 09/28/20 0800 Thank you for allowing us to participate in the care of your patient.
--- NOTE | 2020-09-28 13:16 | EDM.PDOC ---
ED HPI GENERAL MEDICAL PROBLEM - General Chief Complaint: Chest Pain Stated Complaint: chest pain/back pain Time Seen by Provider: 09/28/20 00:05 Source of Information: Reports: Patient History Limitations: Reports: No Limitations - History of Present Illness INITIAL COMMENTS - FREE TEXT/NARRATIVE: Patient comes emergency department today from home with complaints of a "funny s ensation" in her chest. This patient reports for the past 3 days she has waxing and waning "funny sensation" in her chest. Comes and goes on its own. It will come on and be constant like earlier in the day for about 6 hours and then for about the last 3-1/2 hours tonight since she presented to the emergency department. She is unable to relate the sensation other than a odd sensation in her chest. She has no chest pain tightness shortness of breath difficulty breathing. No cough or congestion. No heaviness to her chest. Does not radiate to her back neck or jaw. She has had no fever no chills. No weakness dizziness lightheadedness. No palpitations no syncope. She does have a history of atrial fibrillation for which she is on Eliquis and she is still currently taking. She has no abdominal pain nausea or vomiting. No hematuria dysuria or urinary frequency. No Covid symptoms no Covid exposure. He cannot relate the sensation in her chest to any activity or anything specifically. She is unable to initiate it and it resolves on its own. Chest Pain Score (Numeric/FACES): 2 - Related Data Allergies Allergy/AdvReac Type Severity Reaction Status Date / Time hydrochlorothiazide Allergy Rash Verified 09/27/19 03:55 Home Meds: Home Meds Cholecalciferol (Vitamin D3) [Vitamin D3] 1,000 units PO DAILY 10/06/14 [History] Multivitamin [Multi-Vitamin Daily] 1 tab PO DAILY 10/06/14 [History] Aspirin [Children's Aspirin] 162 mg PO BID 02/05/19 [History] Calcium Carbonate/Vitamin D3 [Caltrate 600 Plus D3 Tablet] 1 tab PO TID 02/05/19 [History] Apixaban [Eliquis] 5 mg PO BID tablet 09/28/19 [Rx] Levothyroxine Sodium [Synthroid] 200 mcg PO DAILY #0 09/28/19 [Rx] Metoprolol Tartrate [Lopressor] 50 mg PO BID #180 tablet 09/28/19 [Rx] Past Medical History HEENT History: Reports: None, Other (See Below) Other HEENT History: vocal cord paralysis Cardiovascular History: Reports: Afib, High Cholesterol, Hypertension, Other (See Below) Other Cardiovascular History: mild mitral valve regurgitaion Respiratory History: Reports: Sleep Apnea Genitourinary History: Reports: Other (See Below) Other Genitourinary History: stress incontinence Musculoskeletal History: Reports: None, Osteoarthritis Neurological History: Reports: None Psychiatric History: Reports: None Endocrine/Metabolic History: Reports: Hypothyroidism, Obesity/BMI 30+ Hematologic History: Reports: None Oncologic (Cancer) History: Reports: Thyroid Dermatologic History: Reports: None - Past Surgical History HEENT Surgical History: Reports: None, Other (See Below) Other HEENT Surgeries/Procedures: panendoscopy; radical neck dissection GI Surgical History: Reports: Colonoscopy Endocrine Surgical History: Reports: Thyroidectomy Neurological Surgical History: Reports: None, Laminectomy, Lumbar Spine Musculoskeletal Surgical History: Reports: None, Knee Replacement Social & Family History - Caffeine Use Caffeine Use: Reports: Coffee ED ROS GENERAL - Review of Systems Review Of Systems: Comprehensive ROS is negative, except as noted in HPI. ED EXAM, GENERAL - Physical Exam Exam: See Below Exam Limited By: No Limitations General Appearance: Alert, WD/WN, No Apparent Distress Ears: Normal External Exam Nose: Normal Inspection, Normal Mucosa Throat/Mouth: Normal Inspection, Normal Oropharynx Head: Atraumatic, Normocephalic Neck: Normal Inspection, Supple, Non-Tender Respiratory/Chest: No Respiratory Distress, Lungs Clear, Normal Breath Sounds, No Accessory Muscle Use, Chest Non-Tender Cardiovascular: Normal Peripheral Pulses, Regular Rate, Rhythm, No Murmur Peripheral Pulses: 2+: Radial (L), Radial (R), Posterior Tibial (L), Posterior Tibial (R), Dorsalis Pedis (L), Dorsalis Pedis (R) GI/Abdominal: Normal Bowel Sounds, Soft, Non-Tender (Female) Exam: Deferred Rectal (Female) Exam: Deferred Back Exam: Normal Inspection, Full Range of Motion Extremities: Normal Inspection, Normal Range of Motion, Non-Tender, No Pedal Edema, Normal Capillary Refill Neurological: Alert, Oriented, CN II-XII Intact, Normal Cognition, Normal Gait, No Motor/Sensory Deficits Psychiatric: Normal Affect, Normal Mood Skin Exam: Warm, Dry, Intact, Normal Color, No Rash Lymphatic: No Adenopathy Course - Vital Signs Last Recorded V/S: Last Vital Signs Temp 98.3 F 09/28/20 00:02 Pulse 53 L 09/28/20 00:59 Resp 18 09/28/20 00:59 BP 141/47 H 09/28/20 00:59 Pulse Ox 96 09/28/20 00:59 - Orders/Labs/Meds Orders: Active Orders 24 hr Category Date Time Status Peripheral IV Insertion Adult [OM.PC] Stat Oth 09/28/20 00:14 Ordered Labs: Laboratory Tests 09/28/20 09/28/20 09/28/20 Range/Units 00:02 00:02 00:02 WBC 8.8 (4.0-10.0) x10^3/uL RBC 4.82 (4.00-5.50) x10^6/uL Hgb 14.3 (12.0-16.0) g/dL Hct 42.1 (33.0-47.0) % MCV 87.3 (78.0-93.0) fL MCH 29.7 (26.0-32.0) pg MCHC 34.0 (32.0-36.0) g/dL RDW Coeff of Kirt 13.0 (10.0-15.0) % Plt Count 252 (130-400) x10^3/uL Neut % (Auto) 54.3 (50.0-80.0) % Lymph % (Auto) 34.7 (25.0-50.0) % Glynn % (Auto) 8.8 (2.0-11.0) % Eos % (Auto) 1.9 (0.0-4.0) % Baso % (Auto) 0.3 (0.2-1.2) % PT 10.2 (9.9-12.5) SEC INR 0.9 L (2.0-3.5) APTT 27.1 (25.6-32.8) SEC Sodium 142 (136-145) mmol/L Potassium 3.9 (3.5-5.1) mmol/L Chloride 105 (98-107) mmol/L Carbon Dioxide 27 (21-32) mmol/L Anion Gap 13.9 (5-15) mmol/L BUN 16 (7-18) mg/dL Creatinine 1.1 H (0.55-1.02) mg/dL Est Cr Clr Drug Dosing 48.37 mL/min Estimated GFR (MDRD) 50 Glucose 106 H (70-99) mg/dL Calcium 8.8 (8.5-10.1) mg/dL Corrected Calcium 9.04 (8.5-10.1) mg/dL Total Bilirubin 0.4 (0.2-1.0) mg/dL AST 15 (15-37) U/L ALT 32 (14-59) U/L Alkaline Phosphatase 93 (46-116) U/L Troponin I High Sens 5 (<=51) ng/L C-Reactive Protein 0.7 (<=0.9) mg/dL NT-Pro-B Natriuret Pep 81 (<=125) pg/mL Total Protein 7.8 (6.4-8.2) g/dL Albumin 3.7 (3.4-5.0) g/dL Globulin 4.1 Albumin/Globulin Ratio 0.90 Meds: Medications Discontinued Medications Generic Name Dose Route Start Last Admin Trade Name Freq PRN Reason Stop Dose Admin Al Hydroxide/Mg Hydroxide 30 ml 09/28/20 00:23 09/28/20 00:29 Gi Cocktail Oral Solution 30 Ml PO 09/28/20 00:24 30 ml ONETIME ONE Administration Aspirin 324 mg 09/28/20 00:23 09/28/20 00:12 Aspirin 81 Mg Tab.Chew PO 09/28/20 00:24 324 mg ONETIME ONE Administration Sodium Chloride 10 ml 09/28/20 00:14 Sodium Chloride 0.9% 10 Ml Syringe FLUSH ASDIRECTED PRN Keep Vein Open - Radiology Interpretation Free Text/Narrative:: Chest x-ray per radiology shows no acute findings. - Re-Assessments/Exams Free Text/Narrative Re-Assessment/Exam: EKG initially is a normal sinus rhythm with PACs without any ST elevation or depression when reviewed extemporaneously by myself. She typically is in atrial fibrillation but is not at this time. Aspirin 324 oral chewable. GI cocktail Laboratory evaluation with a WBC of 8.8 hemoglobin 14.3 platelet count 252. CMP with a creatinine of 1.1 and a glucose of 106 otherwise normal. Troponin high-sensitivity is 5 she has had pain for about 4 hours prior to arrival as well as 6 hours earlier in the day and her Ami score is 79. proBNP is 81. I am really not sure what is causing this "funny sensation" in this patient's chest. She does not appear to be have any anginal type symptoms. And since she has been here her symptoms have resolved. She has had pain for the last 3 days intermittent 6 hours earlier in the day and about 3-1/2 to 4 hours prior to presentation her troponin high-sensitivity is negative. Her symptoms have resolved while she is in the emergency department. I am unsure of what is causing her pain but I am not finding anything acute emergent or concerning for cardiac disease at this time. We will discharge her home with close follow-up if she has any recurrence of the symptoms. Discharge directions as below are explained to the patient she was comfortable with this plan and her questions are answered. Departure - Departure Time of Disposition: :32 Disposition: Home, Self-Care 01 Clinical Impression: Non-cardiac chest pain Instructions: Nonspecific Chest Pain, Adult, [id number] Referrals: PCP,None [Primary Care Provider] - Forms: ED Department Discharge Additional Instructions: Continue with previous medications. Return to the ED if new or worsening symptoms. Follow up with PCP or saturday if symptoms have not resolved. Sepsis Event Note (ED) - Evaluation Sepsis Screening Result: No Definite Risk - My Orders Last 24 Hours: My Active Orders 09/28/20 00:14 Peripheral IV Insertion Adult [OM.PC] Stat - Assessment/Plan Last 24 Hours: My Active Orders 09/28/20 00:14 Peripheral IV Insertion Adult [OM.PC] Stat
== END 2020-09-28 01:32 | disposition home or self-care (01) ==
LOC: VM.ED 00:02
DX: R07.89 Other chest pain (principal); I48.91 Unspecified atrial fibrillation; I10 Essential (primary) hypertension; M19.90 Unspecified osteoarthritis, unspecified site; E03.9 Hypothyroidism, unspecified; E66.9 Obesity, unspecified; Z79.01 Long term (current) use of anticoagulants; Z88.8 Allergy status to other drugs, medicaments and biological substances; Z79.82 Long term (current) use of aspirin
CPT/HCPCS: 36415; 71046; 80053; 83880; 84484; 85025; 85610; 85730; 86140; 93005; 93010; 99284; 99285-25; A9270-GY